=== PATIENT | male | born 1955 | race Caucasian/White ===

== ENCOUNTER → 2022-04-14 | Outpatient (CLI) | payer MEDICARE ==
[~2022-04-14] MED LIST: ALLOPURINOL300 MG PO; ATORVASTATIN CA40 M1 PO; CLOPIDOGREL75 MG PO; DILTIAZEM 24HR360 MG PO; DOXAZOSIN4 MG PO; FUROSEMIDE40 MG PO; LISINOPRIL40 MG PO; METFORMIN HYDR500 MG PO; METOPROLOL TAR100 M1 PO; TRULICITY0.75 MG/0. SC; XARE20MG PO
== END | disposition home or self-care (01) ==
LOC: US 10:30
PROVIDERS: ATTEND Nurse Practitioner Family
DX: N28.1 Cyst of kidney, acquired (principal); I25.10 Atherosclerotic heart disease of native coronary artery without angina pectoris; I10 Essential (primary) hypertension; R79.89 Other specified abnormal findings of blood chemistry

== ENCOUNTER 2023-07-01 15:41 | Emergency (ER) | payer MEDICARE ==
[~2023-07-01 15:41] MED LIST changes: +ALLOPURINOL100 MG PO; +AMLODIPINE BESY10 MG PO; +BUMETANIDE1 MG PO; +BUMETANIDE2 MG PO; +DOXYCYCLINE HY100 M3 PO; +GLIPIZIDE XL5 M1 PO; +HYDRALAZINE HC100 MG PO; +IMDUR SA30 MG PO; +ISOSORBIDE DINI30 MG PO; +LISINOPRIL10 M1 PO; +METOPROLOL SUCC25 M2 PO; +METOPROLOL SUCC50 M1 PO; +NYAMYC15 GM T; +NYSTOP60 GM T; +PAROXETINE HCL40 MG PO; +PEPCID AC20 MG PO; +PREDNISONE10 MG PO; +REMEDY CALAZIM113 G1 T; +VITAMIN D350 MCG PO; +ZOLOFT100 MG PO; +[UNRECOGNIZED DRUG - OTHER]
[2023-07-02] MEDS ORDERED: EPINEPHrine Hydrochloride 1 MG/10 ML SYR IV ONE (17:11)
[2023-07-02] MEDS ORDERED: SODIUM BICARBONATE 50 MEQ/50 ML SYR IV ONE (17:11)
== END 2023-07-01 16:56 ==
LOC: ED 16:03
DX: I46.9 Cardiac arrest, cause unspecified (principal); J44.9 Chronic obstructive pulmonary disease, unspecified; E78.5 Hyperlipidemia, unspecified; I11.0 Hypertensive heart disease with heart failure; I50.9 Heart failure, unspecified; I25.2 Old myocardial infarction; E11.9 Type 2 diabetes mellitus without complications; Z98.890 Other specified postprocedural states